=== PATIENT | female | born 1995 | race American Indian/Alaskan Native ===

== ENCOUNTER 2016-12-09 19:28 | Emergency (ER) | payer MEDICAID ==
[2016-12-09] MEDS ORDERED: Sodium Chloride 0.9% Inh Soln (3mL) UD INH ONE (20:24)
[2016-12-09] MEDS ORDERED: Sodium Chloride 0.9% 1,000 ML IV ONE (20:31)
--- NOTE | 2016-12-09 21:28 | C.PDOC ---
History Of Present Illness 20 yr old female presents to the ER with complaints of body aches, cough, chest pain with cough, fever, runny nose and sob for 1 day. Patient denies sick contact, nausea, vomiting, abdominal pain, diarrhea, weakness or numbness. Time Seen by Provider: 12/09/16 20:16 Chief Complaint (Nursing): Cough, Cold, Congestion History Per: Patient History/Exam Limitations: no limitations Onset/Duration Of Symptoms: Days (1) Current Symptoms Are (Timing): Still Present Sick Contacts (Context): None Past Medical History Reviewed: Historical Data, Nursing Documentation, Vital Signs Vital Signs: Last Vital Signs Temp 99 F 12/09/16 21:45 Pulse 87 12/09/16 21:45 Resp 18 12/09/16 21:45 BP 105/69 12/09/16 21:45 Pulse Ox 99 12/09/16 22:32 Family History: States: No Known Family Hx - Social History Hx Alcohol Use: Yes Hx Substance Use: No - Immunization History Hx Tetanus Toxoid Vaccination: No Hx Influenza Vaccination: No Hx Pneumococcal Vaccination: No Review Of Systems Except As Marked, All Systems Reviewed And Found Negative. Constitutional: Positive for: Fever (Subjective), Other ((+) Body aches ) ENT: Positive for: Nose Discharge (Runny nose) Cardiovascular: Positive for: Chest Pain (with coughing ) Respiratory: Positive for: Cough, Shortness of Breath Gastrointestinal: Negative for: Nausea, Vomiting, Abdominal Pain, Diarrhea Neurological: Negative for: Weakness, Numbness Physical Exam - Physical Exam Appears: Non-toxic, Other (Uncomfortable) Skin: Warm, Dry Head: Atraumatic, Normacephalic Eye(s): bilateral: Normal Inspection Ear(s): Bilateral: Normal Nose: Discharge (clear) Oral Mucosa: Moist Throat: Normal, No Erythema, No Exudate Neck: Normal, Normal ROM, Supple Chest: Symmetrical, No Tenderness Cardiovascular: Rhythm Regular, Other (Tachy) Respiratory: Decreased Breath Sounds, Rhonchi (Scattered ), No Stridor, No Wheezing Gastrointestinal/Abdominal: Normal Exam, Soft, No Tenderness, No Guarding, No Rebound Extremity: Normal ROM, No Swelling Neurological/Psych: Oriented x3, Normal Speech, Normal Motor ED Course And Treatment O2 Sat by Pulse Oximetry: 99 Medical Decision Making Medical Decision Making: PLAN: * CXR * Influenza * POC * Sodium Chloride IV - 1030 pm; pt feeling much better. normal vitals. will d/c home. Disposition Counseled Patient/Family Regarding: Diagnosis, Need For Followup, Rx Given - Disposition Referrals: [facility] [Outside] [facility] [Outside] Disposition: HOME/ ROUTINE Disposition Time: 22:31 Condition: IMPROVED Additional Instructions: Drink lots of fluids. take Tylenol or Motrin every 4-6 hours for pain and fever. Take antibiotics as prescribed. Follow up with your doctor or in clinic in a few days. Return for any worsting symptoms. 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 - Scribe Statement The provider has reviewed the documentation as recorded by the Scribe Irene Hooks All medical record entries made by the Scribe were at my direction and personally dictated by me. I have reviewed the chart and agree that the record accurately reflects my personal performance of the history, physical exam, medical decision making, and the department course for this patient. I have also personally directed, reviewed, and agree with the discharge instructions and disposition.
[2016-12-09] MEDS ORDERED: Alum-Mag Hydrox-Simethicone Susp (30 mL) ONE (21:34)
[2016-12-09 21:46] VITALS: BP 105/69; PULSE 87; RESP 18; TEMP 99
[2016-12-09 22:30] VITALS: O2SAT 99
--- NOTE | 2016-12-10 07:35 | RAD ---
HISTORY: cough fever COMPARISON: No prior. TECHNIQUE: Chest PA and lateral FINDINGS: LUNGS: No active pulmonary disease. PLEURA: No significant pleural effusion identified. No pneumothorax apparent. CARDIOVASCULAR: Normal. OSSEOUS STRUCTURES: No significant abnormalities. VISUALIZED UPPER ABDOMEN: Normal. OTHER FINDINGS: None. IMPRESSION: No active disease.
== END 2016-12-09 22:42 | disposition home or self-care (01) ==
LOC: EDBD 19:28 → C.ER 19:28
DX: J11.1 Influenza due to unidentified influenza virus with other respiratory manifestations (principal)
CPT/HCPCS: 71020; 87804; 99284; J7040

== ENCOUNTER 2018-02-14 03:58 | Emergency (ER) | payer SELFPAY ==
[2018-02-14 04:00] VITALS: BMI 37.0
--- NOTE | 2018-02-14 04:07 | C.PDOC ---
History Of Present Illness woke the patient up because "she was breathing funny" pt states that she feels short of breath, had some nausea and vomited x2. SLighly anxious. States she feels short of breath. No trauma, prolonged trips, leg pain, or any meds. Time Seen by Provider: 02/14/18 04:03 Chief Complaint (Nursing): ENT Problem History Per: Family History/Exam Limitations: no limitations Onset/Duration Of Symptoms: Hrs Current Symptoms Are (Timing): Still Present Severity: Moderate Pain Scale Rating Of: 5 Past Medical History Reviewed: Historical Data, Nursing Documentation, Vital Signs Vital Signs: Last Vital Signs Temp 98.2 F 02/14/18 04:01 Pulse 94 H 02/14/18 05:12 Resp 26 H 02/14/18 05:12 BP 114/67 02/14/18 05:12 Pulse Ox 99 02/14/18 05:12 Family History: States: No Known Family Hx - Social History Hx Alcohol Use: Yes Hx Substance Use: No - Immunization History Hx Tetanus Toxoid Vaccination: No Hx Influenza Vaccination: No Hx Pneumococcal Vaccination: No Review Of Systems Constitutional: Negative for: Fever, Chills Eyes: Negative for: Redness ENT: Negative for: Throat Pain Cardiovascular: Negative for: Chest Pain Respiratory: Positive for: Shortness of Breath Gastrointestinal: Positive for: Nausea, Vomiting. Negative for: Abdominal Pain Genitourinary: Negative for: Dysuria Musculoskeletal: Negative for: Back Pain Skin: Negative for: Rash Neurological: Negative for: Weakness Psych: Positive for: Anxiety Physical Exam - Physical Exam Appears: Non-toxic Skin: Warm, Dry Head: Normacephalic Eye(s): bilateral: Normal Inspection Oral Mucosa: Moist Throat: No Erythema, No Exudate, No Drooling Neck: Trachea Midline, Supple Chest: Symmetrical Cardiovascular: Rhythm Regular Respiratory: No Rales, Rhonchi (few at bases), No Wheezing Gastrointestinal/Abdominal: Soft, No Tenderness, No Distention Back: No CVA Tenderness Extremity: Normal ROM Extremity: Bilateral: Atraumatic Pulses: Left Dorsalis Pedis: Normal, Right Dorsalis Pedis: Normal Neurological/Psych: Oriented x3 Gait: Steady ED Course And Treatment - Laboratory Results Result Diagrams: 02/14/18 04:25 02/14/18 04:25 ECG: Interpreted By Me, Viewed By Me O2 Sat by Pulse Oximetry: 100 Pulse Ox Interpretation: Normal - Radiology CXR: Interpreted by Me, Viewed By Me Reevaluation Time: 06:29 Reassessment Condition: Improved Disposition Counseled Patient/Family Regarding: Studies Performed, Diagnosis, Need For Followup, Rx Given - Disposition Referrals: [facility] [Outside] [facility] [Outside] Disposition: HOME/ ROUTINE Disposition Time: 04:06 Condition: FAIR Additional Instructions: Please return if symptoms recur Prescriptions: Albuterol HFA [Ventolin HFA 90 mcg/actuation (8 g)] 2 puff IH [id number] #1 puff Instructions: Shortness of Breath (Dyspnea) (DC) Forms: [employer] (Hungarian) - Clinical Impression Clinical Impression: Reactive airway disease, Dyspnea
[2018-02-14] MEDS ORDERED: Albuterol-Ipratrop 3 mg / 0.5 (3 ml) UD ONE ×2 (04:15→04:24)
[2018-02-14] MEDS: Albuterol-Ipratrop 3 mg / 0.5 (3 ml) UD IH SCH ×2 (04:19→04:33)
[2018-02-14 04:28] LABS: MONO # 0.7 K/uL (0.0-0.8); NEUT # 9.2 K/uL (1.8-7.0)
[2018-02-14 04:33] LABS: BASO # 0.1 K/uL (0.0-0.2); BASO % 0.6 % (0.0-2.0); EOS % 0.2 % (0.0-4.0); HEMOGLOBIN 12.9 g/dL (11.0-16.0); LYMPH # 1.6 K/uL (1.0-4.3); LYMPH % 13.8 % (20.0-40.0); MEAN CELL VOLUME 82.8 fL (81.0-99.0); MEAN CORPUSCULAR HGB CONC 33.8 g/dL (33.0-37.0); MEAN PLATELET VOLUME 7.7 fL (7.2-11.7); MONO % 5.7 % (0.0-10.0); NEUT % 79.7 % (50.0-75.0); RBC 4.61 Mil/uL (3.80-5.20); RED CELL DISTRIBUTION WIDTH 13.6 % (11.5-14.5); WHITE BLOOD COUNT 11.6 K/uL (4.8-10.8)
[2018-02-14 04:40] LABS: ABG ALLEN TEST POS; ARTERIAL BLOOD GAS HCO3 22.8 mmol/L (21-28); ARTERIAL BLOOD GAS O2 SAT 99.1 % (95-98); ARTERIAL BLOOD GAS PCO2 31 mm/Hg (35-45); ARTERIAL BLOOD GAS PH 7.43 (7.35-7.45); ARTERIAL BLOOD GAS PO2 95 mm/Hg (80-100); ARTERIAL BLOOD GAS TCO2 21.6 mmol/L (22-28)
[2018-02-14 04:42] LABS: INR 1.2; PARTIAL THROMBOPLASTIN TIME 37 SECONDS (21-34); PROTHROMBIN TIME 13.4 SECONDS (9.7-12.2)
[2018-02-14 04:58] LABS: D DIMER < 200 ng/mlDDU (0-243)
[2018-02-14 05:04] LABS: HCG,QUALITATIVE URINE NEGATIVE (NEGATIVE)
[2018-02-14 05:06] LABS: SQUAMOUS EPITHIAL 5 /hpf (0-5); URINE BACTERIA RARE (<OCC); URINE BILIRUBIN NEGATIVE (NEGATIVE); URINE BLOOD NEGATIVE (NEGATIVE); URINE CLARITY Hazy (Clear); URINE COLOR Yellow (YELLOW); URINE GLUCOSE (UA) NORMAL (Normal); URINE HYALINE CAST 0-2 /lpf (0-2); URINE LEUKOCYTE ESTERASE 1+ Leu/uL (Negative); URINE PROTEIN NEGATIVE (NEGATIVE); URINE UROBILINOGEN NORMAL mg/dL (0.2-1.0)
[2018-02-14 05:43] LABS: ALB/GLOB RATIO 1.3 (1.0-2.1); ALBUMIN 4.5 g/dL (3.5-5.0); ALT/SGPT 27 U/L (9-52); AST/SGOT 24 U/L (14-36); BLOOD UREA NITROGEN 12 mg/dL (7-17); CALCIUM 9.4 mg/dl (8.6-10.4); GFR AFRICAN-AMERICAN > 60; GFR NON-AFRICAN AMERICAN > 60
[2018-02-14 05:51] LABS: B-TYPE NATRIURETIC PEPTIDE 21.3 pg/mL (0-450)
[2018-02-14 06:31] VITALS: O2SAT 100
[2018-02-14 06:37] VITALS: BP 104/50; PULSE 81; RESP 22; TEMP 98.5
--- NOTE | 2018-02-14 10:51 | RAD ---
PROCEDURE: CHEST RADIOGRAPH, 1 VIEW HISTORY: Shortness of breath. COMPARISON: None available. FINDINGS: LUNGS: Clear. PLEURA: No pneumothorax or pleural fluid seen. CARDIOVASCULAR: Normal. OSSEOUS STRUCTURES: No significant abnormalities. VISUALIZED UPPER ABDOMEN: Normal. OTHER FINDINGS: None. IMPRESSION: No active disease. No acute/significant interval changes. Concordant results with the preliminary interpretation rendered by the emergency department physician procedure.
== END 2018-02-14 06:38 | disposition home or self-care (01) ==
LOC: C.ER 03:58
DX: J45.909 Unspecified asthma, uncomplicated (principal); R06.00 Dyspnea, unspecified

== ENCOUNTER 2018-09-15 01:02 | Emergency (ER) | payer MEDICAID ==
[2018-09-15 01:02] VITALS: BMI 37.0
[2018-09-15 01:16] VITALS: RESP 18
[2018-09-15 02:34] LABS: HCG,QUALITATIVE URINE NEGATIVE (NEGATIVE)
[2018-09-15 02:41] LABS: SQUAMOUS EPITHIAL 6 /hpf (0-5); URINE BACTERIA RARE (<OCC); URINE BILIRUBIN NEGATIVE (NEGATIVE); URINE BLOOD NEGATIVE (NEGATIVE); URINE CLARITY Hazy (Clear); URINE COLOR Yellow (YELLOW); URINE GLUCOSE (UA) NORMAL (Normal); URINE LEUKOCYTE ESTERASE TRACE Leu/uL (Negative); URINE PROTEIN NEGATIVE (NEGATIVE); URINE UROBILINOGEN NORMAL mg/dL (0.2-1.0)
--- NOTE | 2018-09-15 03:38 | C.PDOC ---
History Of Present Illness 22 year old female presents to the ER with a complaint of body aches, fever, and chills for the past 1 day. Patient also reports some nausea and lower back pain. Denies vomiting, sick contact, or recent travel. Time Seen by Provider: 09/15/18 01:44 Chief Complaint (Nursing): Fever History Per: Patient History/Exam Limitations: no limitations Onset/Duration Of Symptoms: Days (1) Current Symptoms Are (Timing): Still Present Location Of Pain: Diffuse Myalgias Associated Symptoms: Fever, Chills, Myalgias, Nausea, Other (Back pain). denies: Vomiting Ear Symptoms: Bilateral: None Recent travel outside of the [place]: No Past Medical History Reviewed: Historical Data, Nursing Documentation, Vital Signs Vital Signs: Last Vital Signs Temp 100.6 F H 09/15/18 01:13 Pulse 105 H 09/15/18 01:13 Resp 18 09/15/18 01:13 BP 109/69 09/15/18 01:13 Pulse Ox 100 09/15/18 01:13 Family History: States: Unknown Family Hx - Social History Hx Alcohol Use: Yes Hx Substance Use: No - Immunization History Hx Tetanus Toxoid Vaccination: No Hx Influenza Vaccination: No Hx Pneumococcal Vaccination: No Review Of Systems Constitutional: Positive for: Fever, Chills Gastrointestinal: Positive for: Nausea. Negative for: Vomiting, Diarrhea Musculoskeletal: Positive for: Back Pain, Other (body aches) Neurological: Negative for: Weakness, Numbness Physical Exam - Physical Exam Appears: Non-toxic, No Acute Distress Skin: Normal Color, Warm, Dry Head: Atraumatic, Normacephalic Eye(s): bilateral: Normal Inspection Back: No CVA Tenderness, No Vertebral Tenderness, No Paraspinal Tenderness Extremity: Normal ROM (x4) Neurological/Psych: Oriented x3, Normal Speech, Normal Motor, Normal Sensation Gait: Steady ED Course And Treatment - Laboratory Results Lab Results: Urine Color Yellow (YELLOW) 09/15/18 02:19 Urine Clarity Hazy (Clear) 09/15/18 02:19 Urine pH 5.0 (5.0-8.0) 09/15/18 02:19 Ur Specific [place] 1.029 (1.003-1.030) 09/15/18 02:19 Urine Protein Negative mg/dL (NEGATIVE) 09/15/18 02:19 Urine Glucose (UA) Normal mg/dL (Normal) 09/15/18 02:19 Urine Ketones Trace mg/dL (NEGATIVE) 09/15/18 02:19 Urine Blood Negative (NEGATIVE) 09/15/18 02:19 Urine Nitrate Negative (NEGATIVE) 09/15/18 02:19 Urine Bilirubin Negative (NEGATIVE) 09/15/18 02:19 Urine Urobilinogen Normal mg/dL (0.2-1.0) 09/15/18 02:19 Ur Leukocyte Esterase Trace Fabian/uL (Negative) 09/15/18 02:19 Urine WBC (Auto) 2 /hpf (0-5) 09/15/18 02:19 Urine RBC (Auto) 2 /hpf (0-3) 09/15/18 02:19 Ur Squamous Epith Cells 6 /hpf (0-5) H 09/15/18 02:19 Urine Bacteria Rare (<OCC) 09/15/18 02:19 Urine HCG, Qual Negative (NEGATIVE) 09/15/18 02:19 Urine HCG, Qual Negative (NEGATIVE) 09/15/18 02:19 O2 Sat by Pulse Oximetry: 100 (Room air) Pulse Ox Interpretation: Normal Progress Note: Motrin administered. UA and Ucg ordered, results were negative. Patient is resting comfortably in the ER in no acute distress, vitals are stable, will discharge home with Rx and instructions to follow up with PMD. 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 - Scribe Statement The provider has reviewed the documentation as recorded by the Scribe Glen Ladd All medical record entries made by the Scribe were at my direction and personally dictated by me. I have reviewed the chart and agree that the record accurately reflects my personal performance of the history, physical exam, medical decision making, and the department course for this patient. I have also personally directed, reviewed, and agree with the discharge instructions and disposition.
[2018-09-15 03:53] VITALS: BP 112/71; PULSE 93; TEMP 99
[2018-09-15 04:36] VITALS: O2SAT 100
== END 2018-09-15 03:53 | disposition home or self-care (01) ==
LOC: C.ER 01:02
DX: B34.9 Viral infection, unspecified (principal); F17.210 Nicotine dependence, cigarettes, uncomplicated